=== PATIENT | male | born 1970 | race Caucasian/White ===

== ENCOUNTER → 2022-01-29 | Day surgery (SDC) | payer OTHER ==
[~2022-01-29] VITALS: Ht 177.8 cm; Wt 93.0 kg
[~2022-01-29] MED LIST: ALLEGRA ALLERG180 MG PO; IBUPROFEN200 M1 PO; TALTZ AUTO80 MG/1 ML SC
== END | disposition home or self-care (01) ==
LOC: FAS 07:05
DX: Z12.11 Encounter for screening for malignant neoplasm of colon (principal); Z72.89 Other problems related to lifestyle
CPT/HCPCS: J2250; J2704; J7120